=== PATIENT | male | born 1975 | race Caucasian/White ===

== ENCOUNTER 2023-12-02 09:34 | Emergency (ER) | payer BC, SELFPAY ==
[2023-12-02 09:36] VITALS: BP 165/110
--- NOTE | 2023-12-02 09:49 | ED.CVA ---
History of Present Illness
General
Chief Complaint: CVA/TIA Symptoms
Source: patient and family
Exam Limitations: none
Time Seen by Provider: 12/02/23 09:42
Nursing documentation reviewed up to this point in time: agreed with
Onset of Stroke Symptoms
Onset of symptoms known: Yes
Date of onset of symptoms: 12/02/23
Time of onset of symptoms: 08:00
History of Present Illness
History of Present Illness:
48 yo male presents to the emergency department c/o numbness in his mouth, intermittent blurred vision. Started at 8am, symptoms resolved.
Past History
Past History
ED Past Medical History: None
ED Past Surgical History: None
Social History
Tobacco: Non-smoker
Alcohol: None
Drug: None
Living: with family
Review of Systems
Review of Systems
Allergies reviewed?: Yes
All Other Systems: Not applicable
Constitutional: Reports no symptoms
EENT: Reports no symptoms
Respiratory: Reports no symptoms
Cardiac: Reports no symptoms
ABD/GI: Reports no symptoms
: Reports no symptoms
Musculoskeletal: Reports no symptoms
Skin: Reports no symptoms
Neurological: Reports numbness and other (blurred vision)
Endocrine: Reports no symptoms
Hematologic/Lymphatic: Reports no symptoms
Psychiatric: Reports no symptoms
Phy Exam
General Physical Exam
General Presentation: well appearing and no apparent distress
ENT Exam
ENT Exam: EOMI and normocephalic
Eye Exam
Eye Exam: PERRL and EOMI
Eye Exam General: PERRL: bilateral and EOM intact: bilateral
Cardiovascular Exam
Cardiovascular Exam: regular rate/rhythm, no edema and no gallop
Pulmonary Exam
Pulmonary Exam: lungs clear and no respiratory distress
Gastrointestinal Exam
Gastrointestinal Exam: non tender, soft and non distended
Neurological Exam
Neurological Exam: alert, oriented x3, CN II-XII intact and no sensory deficits
Course
Orders/Labs/Results
Orders:
Orders
12/02/23 09:48
CT Head W/o Iv Contrast Urgent
Comment:
Reason For Exam: tongue numbness, facial numbness, blurred vision
12/02/23 09:49
Electrocardiogram (*1) Stat
Reason for Study: Other
Other Reason for Exam: chest pain
Cardiac Monitoring- Treatment ONCE
EKG- Treatment ONCE
IV Insert/Care/Rem.- Treatment PRN
Pulse Ox/cont/shift [RESP] Stat
Quantity: 1
12/02/23 10:13
Complete Blood Count/With Diff Urgent
Comprehensive Metabolic Panel Urgent
12/02/23 10:50
HydrALAZINE [Apresoline] 10 mg IV NOW STA
Abnormal Lab Results
12/02/23
10:13
Monocytes % 10.8 H %
(1.7-9.3)
Glucose 117 H mg/dl
(70-99)
Calcium 10.4 H mg/dl
(8.4-10.2)
12/02/23 10:13
12/02/23 10:13
Vital Signs
Initial and Last Documented VS:
Initial Vital Signs
Temp Pulse Resp BP Pulse Ox
98.8 F 74 16 165/110 98
12/02/23 09:36 12/02/23 09:36 12/02/23 09:36 12/02/23 09:36 12/02/23 09:36
Last Documented Vital Signs
Temp Pulse Resp BP Pulse Ox
98.8 F 81 20 147/96 95
12/02/23 09:36 12/02/23 13:00 12/02/23 13:00 12/02/23 13:00 12/02/23 13:00
MDM/Problems Addressed
Differential Diagnosis Includes:
cva, TIA, hypertensive urgency
MDM/Problems Addressed:
48 yo male with tongue numbness, resolved, hypertension. No chest pain, normal ekg and head ct. Will start on amlodipine. F/u with primary care. Return precautions given.
Chronic conditions affecting care: HTN
Acute Exacerbation and/or Progression of Chronic Illness: HTN
*Radiology
Radiology exam reviewed: radiology read reviewed (ct head nad)
*Pulse Oximetry
Patient hypoxic: no
*EKG
Interpreted by ED Provider?: Yes
EKG Intrepretation Date: 12/02/23
EKG Intrepretation Time: 10:17
Interpretation: normal
Comparison EKG: no comparison EKG present
Heart Rate: 64
Rate: normal
Rhythm: sinus
[place]: normal axis
Interval: normal interval
QRS Pattern: normal QRS
Ischemia: no ischemia
*Charm Filter Operator Helper Interpretation
Rate: normal
Interpretation: normal
Heart Rate: 66
Rhythm: sinus
*Critical Care Note
Total Time (30-74mins, 75-104mins- exclusive of procedures): Not Applicable
Patient Management
Social determinants of health affecting care: Living situation
Discussion with other providers: [employer] (d/w Dr. Foster, based on history I gave, does not recommend further neuro eval)
Escalation/DeEscalation of care consider admission/obs:
admit not indicated
ED Attending Note
-
Portions of this chart may have been created with voice recognition software.� Occasional wrong word or��sound alike� substitutions may have occurred due to the inherent limitations of voice recognition software.
Discharge Plan
Departure
Patient Disposition: Home (Routine Discharge)
Date of Disposition: 12/02/23
Time of Disposition: 12:59
Patient with high blood pressure during this ER visit?: Yes
Condition: Good
Discharge Problem:
Numbness of tongue, Hypertension
Instructions: Paresthesia (DC), BLOOD PRESSURE
Prescriptions:
New
amlodipine 2.5 mg tablet
2.5 mg PO DAILY Qty: 30 0RF
Referrals:
Kee Schuster MD [Family Provider] - Call in 1-3 days for appt
Interventions
Interventions:
*Risk Screen - Suicide Last Done: 12/02/23 10:14
*General Assessment Last Done: 12/02/23 10:14
*Neglect/Abuse Screening Last Done: 12/02/23 10:14
ED- Fall Risk Assessment Last Done: 12/02/23 10:14
*ED COVID-19 Vaccine History Last Done: 12/02/23 10:14
*Nursing Disposition Last Done: 12/02/23 13:29
ED- Pulmonary Assessment Last Done: 12/02/23 10:33
ED- Neurological Assessment Last Done: 12/02/23 10:33
ED- Cardiac Assessment Last Done: 12/02/23 10:33
Discharge Date and Time
Discharge Date/Time: 12/02/23 13:30
Print Language: SWISS
[2023-12-02 10:14] VITALS: BP 159/107; BMI 28.1
[2023-12-02 10:36] LABS: % Basophils 0.9 % (0-2); % Eosinophils 2.3 % (0-6); % Immature Granulocytes 0.3 % (0-0.5); % Lymphocytes 26.7 % (20.5-51.1); % Monocytes 10.8 % (1.7-9.3); Absolute Basophils 0.1 10^3/uL (0-0.2); Absolute Eosinophils 0.1 10^3/uL (0-0.7); Absolute Lymphocytes 1.5 10^3/uL (1.2-3.4); Absolute Monocytes 0.6 10^3/uL (0.1-0.6); Absolute Neutrophils 3.4 10^3/uL (1.4-6.5); Hematocrit 41.1 % (39.0-52.0); Hemoglobin 14.7 g/dL (13.0-18.0); Mean Corp Hgb Conc. 35.8 g/dL (33.0-37.0); Mean Corpuscular Hgb 29.6 pg (27.0-31.0); Mean Corpuscular Volume 82.7 fL (80.0-94.0); Mean Platelet Volume 10.4 fL (7.4-10.4); Nucleated Red Blood Cells % 0 % (-); Platelet Count 243 10^3/uL (130-400); Red Blood Cell Count 4.97 10^6/uL (4.70-6.10); Red Cell Dist. Width 12.8 % (11.5-14.5); White Blood Cell Count 5.8 10^3/uL (4.8-10.8)
[2023-12-02 10:42] LABS: ALT (SGPT) 38 U/L (0-50); AST (SGOT) 38 U/L (17-59); Albumin 4.9 g/dl (3.5-5.0); Alkaline Phosphatase 55 U/L (38-126); Blood Urea Nitrogen 17 mg/dl (9-20); Calcium 10.4 mg/dl (8.4-10.2); Carbon Dioxide 22 mmol/L (22-30); Chloride 107 mmol/L (98-107); Estimated Creatinine Clearance 91 ml/min; Glucose 117 mg/dl (70-99); Potassium 4.8 mmol/L (3.5-5.1); Sodium 139 mmol/L (135-145); Total Bilirubin 0.8 mg/dl (0.2-1.3); Total Protein 7.8 g/dl (6.3-8.2); eGFR > 60.00
[2023-12-02 11:00] VITALS: BP 156/92
[2023-12-02] MEDS: APRESOLINE 10 MG IV (11:22)
[2023-12-02 12:00] VITALS: BP 158/98
[2023-12-02 12:23] VITALS: BP 151/98
[2023-12-02 13:00] VITALS: BP 147/96
== END 2023-12-02 13:30 | disposition home or self-care (01) ==
LOC: EMR 09:34
PROVIDERS: EMERGENCY PHYSICIAN Emergency Medicine; FAMILY PHYSICIAN Family Medicine
DX: H53.8 Other visual disturbances (principal); R20.0 Anesthesia of skin; I10 Essential (primary) hypertension
CPT/HCPCS: 99284; 96374; 70450; 80053; 85025; 93005

== ENCOUNTER → 2023-12-26 07:16 | Outpatient (REF) | payer BC, SELFPAY | LOC: MRI 07:16 | PROVIDERS: ATTENDING PHYSICIAN Specialist; FAMILY PHYSICIAN Family Medicine | DX: G45.9 Transient cerebral ischemic attack, unspecified (principal); R42 Dizziness and giddiness | CPT/HCPCS: 70544; 70547; 70553; A9575 ==

== ENCOUNTER 2024-08-20 06:30 | Day surgery (SDC) | payer BC, SELFPAY ==
[2024-08-06 14:21] VITALS: BMI 28.7
[2024-08-20] VITALS (13 sets, daily range): BP systolic 152–172; BP diastolic 92–110; BMI 28.7
[2024-08-20] MEDS: TYLENOL 1000 MG PO (12:17)
[2024-08-20] MEDS: NORMOSOL-R/PLASMALYTE-A 1000 IV (12:19)
--- NOTE | 2024-08-20 14:53 | W.IMMPOSTOP ---
Surgical Immed Post Op Note
-
Primary Surgeon: Santosh
Assisting Surgeon: Magdy ARNETT
Pre-op Diagnosis: Incarcerated umbilical hernia
Post-op Diagnosis: Incarcerated umbilical hernia and epigastric hernia
Procedure Performed: Robot assisted laparoscopic repair of incarcerated umbilical hernia and epigastric hernia (rTAPP) [Total hernia size 5.5cm]
Anesthesia Type: GETA + TAP block
Specimen / Cultures: None
Estimated Blood Loss: 3cc
Complications: None immediate
Operative Findings: 1x1cm incarcerated umbilical defect with fat, 4cm superior to this an additional 1.5cm x 5mm epigastric hernia; 12cm x 12cm bard soft mesh
--- NOTE | 2024-08-20 14:55 | OR.RPT ---
Operative Report
Operative Report
Primary Surgeon: Santosh
Assisting Surgeon: Magdy ARNTET
Pre-op Diagnosis: Incarcerated umbilical hernia
Post-op Diagnosis: Incarcerated umbilical hernia and epigastric hernia
Procedure Performed: Robot assisted laparoscopic repair of incarcerated umbilical hernia and epigastric hernia (rTAPP) [Total hernia size 5.5cm]
Anesthesia Type: GETA + TAP block
Specimen / Cultures: None
Estimated Blood Loss: 3cc
Complications: None immediate
Operative Findings: 1x1cm incarcerated umbilical defect with fat, 4cm superior to this an additional 1.5cm x 5mm epigastric hernia; 12cm x 12cm bard soft mesh
Date of surgery: 08/20/24
Indications:� This 49M developed a symptomatic incarcerated umbilical hernia. Robot assisted laparoscopic repair was planned.
Description of procedure:� The patient was taken to the operating room and positioned into supine position. The patient�s abdomen was prepped and draped in standard sterile fashion. A time-out was completed verifying correct patient, procedure,
site, positioning, and implants and special equipment prior to beginning this procedure.� The hernia was unable to be manually reduced after induction. A stab incision was made in the left upper quadrant, a Veress needle was inserted and proper
position was confirmed by aspiration and saline drop test. Following this, pneumoperitoneum was created with insufflation of carbon dioxide to 12 mmHg. Then a 8mm robotic trocar was inserted at the left anterior axillary line at the level of the
umbilicus. The laparoscope was inserted and no injuries were identified in the area. Under direct visualization, the initial trocar was exposed and two 8mm trocars were placed a hand's breadth above and below the initial trocar under direct
visualization.
Attention was turned to the umbilical defect. The peritoneum was incised several cm superior to the defect and a peritoneal flap was developed in transverse and caudad directions using blunt and sharp dissection and judicious electrocautery. The
defect was identified and measured as above. Incarcerated fatty contents were reduced. 4cm superior to this area an additional defect was identified and measured as above. The defects were closed with 0 PDS straatafix suture. A 12cm x 12cm bard soft
mesh was passed into the abdomen. It was placed against the underside of the abdominal wall and secured in place with 2-0 vicryl sutures at all four corners. The flap was closed over the mesh and secured with 2-0 monocryl stratafix suture. A 14g
angiocath was used to decompress the preperitoneal space. The flap sealed and suctioned nicely up to the abdominal wall. The mesh did not fold nor curl. A transversus abdominis plane block was then performed under laparoscopic vision with
marcaine/decadron.
After ensuring adequate hemostasis, the trocars were removed and the pneumoperitoneum allowed to escape. The trocar incisions were closed at the skin level using 4-0 monocryl and topical skin adhesive. All counts were correct. The patient tolerated
the procedure well and was taken to the postanesthesia care unit in stable condition.
The assistance of Magdy ARNETT was required due to the complexity of the procedure. During the procedure she assisted with retraction, resection, block and closure of the wound.
[2024-08-20] MEDS: DILAUDID 0.25 MG IV ×2 (15:10→15:37)
--- NOTE | 2024-08-20 15:50 | SUR.PHASEI ---
bp elevated as noted, pt took his amlodipine this am. medicating for pain and diastolic BP improved. O2 resumed after sats dropped with pain meds. Patient is anxious. reassured. dozing now. Dr Sanchez, Dr Dupree updated,.
== END 2024-08-20 17:00 | disposition home or self-care (01) ==
LOC: SDS 06:30
PROVIDERS: ATTENDING PHYSICIAN Surgery; FAMILY PHYSICIAN Family Medicine
DX: K42.0 Umbilical hernia with obstruction, without gangrene (principal); K43.9 Ventral hernia without obstruction or gangrene
CPT/HCPCS: 49591; 36415; 93005; C1781